=== PATIENT | female | born 1940 | race Caucasian/White ===

== ENCOUNTER 2019-04-13 16:43 | Inpatient (IN) ==
[2019-04-14] MEDS ORDERED: Mag Hydrox/Al Hydrox/Simeth 30 ML UDC PO PRN (20:21)
[2019-04-14] MEDS: *HR* HYDROcodone/Acet 5/325 mg TABLET PO PRN (21:53)
[2019-04-14] MEDS: Aspirin Enteric Coated 325 MG Tablet PO SCH (21:53)
[2019-04-15] MEDS: *HR* HYDROcodone/Acet 5/325 mg TABLET PO PRN ×4 (04:29→19:57)
[2019-04-15 04:47] LABS: Basophils % 0.5 %; Eosinophils # 0.1 K/mcL (0.0-0.6); Eosinophils % 1.7 %; Hematocrit 24.4 % (35.3-44.9); Hemoglobin 7.9 g/dL (11.5-15.4); Immature Granulocytes % 0.4 % (0-4); Lymphocytes # 1.6 K/mcL (0.6-4.6); Lymphocytes % 21.6 %; Mean Corpuscular HGB Conc 32.4 g/dL (31.6-35.5); Mean Corpuscular Hemoglobin 30.6 pg (28.0-33.3); Mean Corpuscular Volume 94.6 fL (83.0-100.0); Mean Platelet Volume 8.8 fL (9.4-12.4); Monocytes # 0.9 K/mcL (0.0-1.3); Monocytes % 12.1 %; Neutrophils # 4.8 K/mcL (1.6-8.9); Platelet Count 266 K/mcL (140-400); Red Blood Count 2.58 M/mcL (3.82-4.97); Red Cell Distribution Width 13.6 % (11.5-14.5); Segmented Neutrophils % 63.7 %; White Blood Count 7.6 K/mcL (4.3-11.1)
[2019-04-15 05:09] LABS: Alanine Aminotransferase 10 Units/L (7-52); Albumin 3.2 g/dL (3.5-5.7); Albumin/Globulin Ratio 1.2 (1.1-2.2); Alkaline Phosphatase 53 Units/L (34-104); Aspartate Amino Transferase 20 Units/L (13-39); BUN/Creatinine Ratio 20 (6-26); Bilirubin,Total 0.4 mg/dL (0.3-1.0); Blood Urea Nitrogen 19 mg/dL (8-23); Calcium 9.1 mg/dL (8.6-10.3); Carbon Dioxide 28 mEq/L (23-29); Chloride 97 mEq/L (98-107); Globulin 2.7 g/dL (2.4-3.5); Glucose 108 mg/dL (70-105); Magnesium 1.8 mg/dL (1.6-2.6); Osmolality,Calculated 273 (280-300); Sodium 130 mEq/L (136-145); Total Protein 5.9 g/dL (6.4-8.9); eGFR For African Americans > 60 (> 60); eGFR For Non-African Americans 57 (> 60)
[2019-04-15] MEDS: Cholecalciferol (D-3) 1,000 UNIT (25MCG) TABLET PO SCH (07:59)
[2019-04-15] MEDS: Acetaminophen 325 MG TABLET PO PRN (07:59)
[2019-04-15] MEDS: Aspirin Enteric Coated 325 MG Tablet PO SCH ×2 (08:00→19:57)
--- NOTE | 2019-04-15 11:17 | Internal Med History&Physical ---
Date of Encounter: 04/15/19 Time of Encounter: 11:14 Assessment and Plan (1) Status post total left knee replacement Current visit: Yes Status: Acute No acute issues. Patient was transferred to this facility for further rehabilitation due to weakness and unsteady gait secondary to her left total knee replacement. Patient has complained of moderate pain during mobilization. We will review patient's current pain medications for adjustment. Left knee surgical incision appears healthy. Therapy evaluation in progress and await recommendations. We will continue with current medications. (2) Chronic kidney disease, stage 3 Current visit: Yes Status: Chronic No acute issues. Patient's most recent creatinine was at 0.9. Patient has had issues with hyponatremia but her most recent labs show a sodium level I:XXX. We will continue to monitor renal status to serial labs. We will continue with current medications. (3) Anemia Current visit: Yes Status: Chronic No acute issues. Patient's last hemoglobin was 7.9 which is likely secondary to surgical blood loss. We will continue monitor the serial labs. Patient shows no signs of active bleeding and remains asymptomatic to her current hemoglobin. Qualifiers: Anemia type: unspecified type Qualified Code(s): D64.9 - Anemia, unspecified Internal Medicine - H&P: HPI Chief complaint: left total knee replacement Admitted From: Hospital to Hospital Transfer Plans for Post Hospital Care: Home History of present illness: Ms. Crews is a 78 year old female, who was transferred to this facility for further rehabilitation current having a left total knee replacement performed on 04/11/19. Patient had a mostly uneventful recovery while at area hospital, but continues to have an unsteady gait due to pain to her left knee. Patient states that she continues to have moderate pain to her left knee, which increases during mobilization. Patient denies any other discomforts or shortness of breath. Left knee with midline incision appears dry and intact with dressing. No edema or ecchymosis noted. Patient has continuous icing in place. Patient did not have evaluation for hyponatremia, but today's labs show a sodium of 130. Most recent hemoglobin was at 7.9. Past Med Surg Social Fam HX - Past Medical History Medical history: arthritis, glaucoma, hypertension, osteoporosis, other Additional medical history: SKIN CA. [place] palsy Psychiatric history: no psych history - Past Surgical History Surgical History: appendectomy, orthopedic, other, other Additional surgical history: TUBAL. Hemorrhoidectomy. Eye surgery. Skin surgery. bilateral carpal tunnel sx - Social History Smoking Status: Former smoker Smokeless Tobacco Status: No Alcohol use: none Drug use: none - Family History Mother Family Member Ethnicity: Non- Living Status: Age at : 83 Cause of : brain bleed Hx Family Cardiac Disorders: No Hx Family Respiratory Disorders: No Hx Family Cancer: No Hx Family GI Disorders: No Hx Family Genitourinary Disorders: No Hx Family Endocrine Disorder: No Hx Family Musculoskeletal Disorders: No Hx Family Neuromuscular Disorders: Yes (glaucoma) Internal Medicine - H&P: Meds Atorvastatin Calcium [Lipitor] 20 mg PO QAM 06/17/18 [History] Cholecalciferol (D-3) [Vitamin D] 1,000 unit PO DAILY 06/17/18 [History] Aspirin Enteric Coated [Aspirin EC] 325 mg PO BID 10 Days #20 tablet. 04/11/19 [Rx] Docusate Sodium [Colace] 100 mg PO BID 5 Days #10 capsule 04/11/19 [Rx] HYDROcodone/Acet 5/325 mg [[place] 5-325 mg] 1 tab PO Q6H PRN 5 Days #20 tab 04/11/19 [Rx] Acetaminophen [Non-Aspirin Extra Strength] 500 mg PO Q6H PRN 7 Days #28 tablet 04/14/19 [Rx] Lisinopril [Zestril] 10 mg PO DAILY tablet 04/14/19 [Rx] Allergy/AdvReac Type Severity Reaction Status Date / Time alendronate sodium Allergy See Verified 04/11/19 14:07 Comments codeine Allergy Itching Verified 04/11/19 14:07 oxycodone [From Percocet] Allergy Itching Verified 04/11/19 14:07 tramadol AdvReac Insomnia Verified 04/11/19 14:07 All Systems PM: A 10-system review of systems was performed and is negative for pertinent findi ngs except as documented above in the HPI. - Constitutional Constitutional: as per HPI - EENT Eyes: as per HPI, no change in vision, no discharge, no pain, no photophobia Ears: as per HPI, no ear discharge, no ear pain, no tinnitus Nose, mouth and throat: as per HPI, no dysphagia, no nasal discharge, no neck pain, no sore throat - Breasts Breasts: as per HPI - Cardiovascular Cardiovascular ROS IM: as per HPI, no chest pain, no diaphoresis, no dyspnea, no lightheadedness, no palpitations, no syncope - Respiratory Respiratory: as per HPI, no cough, no dyspnea, no wheezing, no excessive phlegm production - Gastrointestinal Gastrointestinal: as per HPI, no abdominal pain, no diarrhea, no hematemesis, no hematochezia, no melena, no nausea, no vomiting - Genitourinary Genitourinary: as per HPI, no change in urinary stream, no dysuria, no flank pain, no hematuria Menstruation: as per HPI - Musculoskeletal Musculoskeletal ROS IM: as per HPI, no numbness, no tingling - Integumentary Integumentary IM: as per HPI, no rash, no unusual bruising - Neurological Neurological ROS: as per HPI, no confusion, no convulsions, no focal weakness, no numbness, no tingling, no tremor(s) - Psychiatric Psychiatric: as per HPI - Hematologic/Lymphatic Hematologic/Lymphatic: no easy bruising - Constitutional Vitals: Temp Pulse Resp BP Pulse Ox 98.2 F 74 16 118/71 94 04/15/19 07:14 04/15/19 07:14 04/15/19 07:14 04/15/19 07:14 04/15/19 07:14 General appearance: Present: A&O X 3, pleasant - Head Head exam: Present: atraumatic, normocephalic - Eye Eye exam: Present: PERRL, conjuntiva pink, sclera anicteric Pupils: Present: PERRL - Neck Neck exam general surgery: Present: supple, trachea midline. Absent: lymphadenopathy - Respiratory Respiratory exam: Present: decreased breath sounds, CTAB. Absent: accessory muscle use, rales, rhonchi, wheezes - Cardiovascular Cardiovascular exam: Present: RRR, +S1, +S2. Absent: diastolic murmur, gallop, rubs, systolic murmur - GI/Abdominal GI/Abdominal exam: Present: normal bowel sounds, soft, no peritoneal signs. Absent: distended, tenderness - Extremities Exam Extremities exam: Present: warm, radial pulses palpable and symmetrical. Absent: calf tenderness, cyanotic, pedal edema Additional comments: Left knee with midline incision that appears healthy and intact with no ecchymosis or edema noted. Dressing remains dry and intact. - Neurological Exam Neurological exam: Present: CN II-XII intact, oriented X3, no focal deficits. Absent: pronater drift, facial droop, speech deficit - Skin Skin exam: Present: dry, intact Internal Med - H&P Results - Labs CBC & Chem 7: 04/15/19 04:39 04/15/19 04:39 Labs: Short CBC 04/15/19 Range/Units 04:39 WBC 7.6 (4.3-11.1) K/mcL Hgb 7.9 L (11.5-15.4) g/dL Hct 24.4 L (35.3-44.9) % Plt Count 266 (140-400) K/mcL Neutrophils # 4.8 (1.6-8.9) K/mcL BMP 04/15/19 04:39 Sodium 130 L Potassium 4.0 Chloride 97 L Carbon Dioxide 28 BUN 19 Creatinine 0.95 Glucose 108 H Calcium 9.1 Liver Function 04/15/19 Range/Units 04:39 Total Bilirubin 0.4 (0.3-1.0) mg/dL AST 20 (13-39) Units/L ALT 10 (7-52) Units/L Alkaline Phosphatase 53 (34-104) Units/L Albumin 3.2 L (3.5-5.7) g/dL
[2019-04-15] MEDS: Melatonin 3 MG TABLET PO PRN (19:57)
[2019-04-16] MEDS: *HR* Enoxaparin 40 MG/0.4 ML SYRINGE SQ SCH (05:17)
[2019-04-16] MEDS: *HR* HYDROcodone/Acet 5/325 mg TABLET PO PRN ×4 (05:42→19:08)
[2019-04-16] MEDS: Cholecalciferol (D-3) 1,000 UNIT (25MCG) TABLET PO SCH (09:02)
[2019-04-16] MEDS: Aspirin Enteric Coated 325 MG Tablet PO SCH ×2 (09:02→21:35)
[2019-04-16] MEDS ORDERED: Bisacodyl 10 MG RECTAL SUPPOSITORY RC PRN (18:01)
--- NOTE | 2019-04-16 18:03 | Internal Med Progress Note ---
Date of Encounter: 04/16/19 Time of Encounter: 15:40 - Subjective Interval history: Assessment and Plan (1) Status post total left knee replacement Current visit: Yes Status: Acute pt has had high pain levels. she does have listed some allergies for example to tramadol. She is having the norco 5 wear off so will increase it to norco 10 q 5 hr 1 tab prn. Will also add 2 days of po TORADOL for improved pain control after joint surgery. Pt is having some narcotic constipation will add mariaa suppos. will add fiber po. has hx of stable GERD will add carafate for GI protection. Patient was transferred to this facility for further rehabilitation due to weakness and unsteady gait secondary to her left total knee replacement. Patient has complained of moderate pain during mobilization. We will review patient's current pain medications for adjustment. Left knee surgical incision appears healthy. Having physical therapy, occupational and recreational therapies, and medical support as needed. Based on initial reports from physical therapy, she is progressing well. (2) Chronic kidney disease, stage 3 Current visit: Yes Status: Chronic No acute issues. Patient's most recent creatinine was at 0.9. GFR over 60. Patient has had issues with hyponatremia but her most recent labs show a sodium level 130 she is on renal diet We will continue to monitor renal status to serial labs. BMP We will continue with current medications. (3) Anemia Current visit: Yes Status: Chronic Patient's latest hemoglobin range in high 7 s which is likely secondary to surgical blood loss. She is macrocytic. No active bleed. She is still on proph lovenox 40. If continues to drop will need to stop the lovenox. Will check b12 levels and iron group. since macrocytic will add b12. since hb low will add low dose vit c and ferrous sulfate now will recheck cbc if serum iron low would benefit from IV ferrous sulf Qualifiers: Anemia type: unspecified type Qualified Code(s): D64.9 - Anemia, unspecified Interval HX Chief complaint: left total knee replacement Admitted From: Hospital to Hospital Transfer Plans for Post Hospital Care: Home Patient is a 70-year-old female status post left total knee replacement by , on 04/11/19. Her postoperative course has been complicated only by knee pain and constipation. She states it is been 5 days since her last bowel movement. We discussed this and she agrees to take MiraLAX, today. She denies any nausea except for right after surgery. She has had postoperative blood loss but this apparently is stable and well tolerated in terms of symptoms and vital signs. Since here, she has had inadequate control of her pain. Sometimes, this is gone as high as 10/10. We have changed her schedule to every 4 hours instead of every 6.Patient had a mostly uneventful recovery while at area hospital, but continues to have an unsteady gait due to pain to her left knee. Patient states that she continues to have moderate pain to her left knee, which increases during mobilization. Patient denies any other discomforts or shortness of breath. Left knee with midline incision appears dry and intact with dressing. No edema or ecchymosis noted. EXAM General: Pleasant WF In mild distress over knee pain alert and oriented 3. Head: Atraumatic and normocephalic. Eyes: Extraocular muscles are intact, pupils equal round and reactive to light and accommodation. Sclerae anicteric. Ears: External ears are normal to inspection and hearing is grossly normal. Nose: Patent without lesion noted. Mouth: Dentition is unremarkable. Neck: Supple with trachea midline. There is no thyromegaly or adenopathy and carotids are 2+ without bruit heard. Respiratory: . Lungs are clear throughout. Normal airflow. Cardiovascular: Regular rate and rhythm without murmur appreciated. Abdomen: Bowel sounds are normal. No hepatosplenomegaly masses or tenderness. Obese and therefore difficult to palpate deeply. Extremities: No cyanosis clubbing or edema. There is no cord or calf tenderness. The left knee is post surgical with no vis drainage from site pulses intact Neurological: A and O 3. Cranial nerves II through XII are intact. No focal deficits and no abnormal movements or postures. Skin: Warm and non-diaphoretic with no lesions noted. Breasts, pelvic and rectal: Not examined. - Constitutional Vitals: Temp Pulse Resp BP Pulse Ox 97.6 F 89 15 99/54 95 04/16/19 07:00 04/16/19 07:00 04/16/19 07:00 04/16/19 07:00 04/16/19 07:00 General appearance: Present: A&O X 3, pleasant Internal Medicine: Result - Labs CBC & Chem 7: 04/15/19 04:39 07/12/19 04:39 Consult Discharge Plan - Plan Referrals: Paz Blair DO [Primary Care Provider] -
[2019-04-16] MEDS: Acetaminophen 325 MG TABLET PO PRN (21:34)
[2019-04-16] MEDS: Melatonin 3 MG TABLET PO PRN (21:35)
[2019-04-17] MEDS: *HR* HYDROcodone/Acet 5/325 mg TABLET PO PRN ×3 (02:28→13:05)
[2019-04-17] MEDS: *HR* Enoxaparin 40 MG/0.4 ML SYRINGE SQ SCH (05:35)
[2019-04-17] MEDS: Cholecalciferol (D-3) 1,000 UNIT (25MCG) TABLET PO SCH (08:45)
[2019-04-17] MEDS: Aspirin Enteric Coated 325 MG Tablet PO SCH ×2 (08:45→21:07)
--- NOTE | 2019-04-17 17:32 | Internal Med Progress Note ---
Date of Encounter: 04/17/19 Time of Encounter: 16:40 - Subjective Interval history: Assessment and Plan (1) Status post total left knee replacement Current visit: Yes Status: Acute pt has had high pain levels. she does have listed some allergies for example to tramadol. She is having the norco 5 wear off so will increase it to norco 10 q 5 hr 1 tab prn. Will also add 2 days of po TORADOL for improved pain control after joint surgery. Pt is having some narcotic constipation will add mariaa suppos. will add fiber po. has hx of stable GERD will add carafate for GI protection. Patient was transferred to this facility for further rehabilitation due to weakness and unsteady gait secondary to her left total knee replacement. Patient has complained of moderate pain during mobilization. We will review patient's current pain medications for adjustment. Left knee surgical incision appears healthy. Having physical therapy, occupational and recreational therapies, and medical support as needed. Based on initial reports from physical therapy, she is progressing well. (2) Chronic kidney disease, stage 3 Current visit: Yes Status: Chronic No acute issues. Patient's most recent creatinine was at 0.9. GFR over 60. Patient has had issues with hyponatremia but her most recent labs show a sodium level 130 she is on renal diet We will continue to monitor renal status to serial labs. BMP We will continue with current medications. (3) Anemia Current visit: Yes Status: Chronic Patient's latest hemoglobin range in high 7 s which is likely secondary to surgical blood loss. She is macrocytic. No active bleed. She is still on proph lovenox 40. If continues to drop will need to stop the lovenox. Will check b12 levels and iron group. since macrocytic will add b12. since hb low will add low dose vit c and ferrous sulfate now will recheck cbc if serum iron low would benefit from IV ferrous sulfate as this would improve her rehab tolerance Qualifiers: Anemia type: unspecified type Qualified Code(s): D64.9 - Anemia, unspecified Interval HX Chief complaint: left total knee replacement Admitted From: Hospital to Hospital Transfer Plans for Post Hospital Care: Home Patient is a 70-year-old female status post left total knee replacement by , on 04/11/19. Her postoperative course has been complicated only by knee pain and constipation. She had today bowel movement. She has been using MiraLAX, Needed suppos as well. Eating better today. She has had postoperative blood loss but this apparently is stable and well tolerated in terms of symptoms and vital signs. She remains anemic. Since here, she has had inadequate control of her pain. Sometimes, this is gone as high as 10/10. We have changed her schedule to every 4 hours instead of every 6.Patient had a mostly uneventful recovery while at area hospital, but continues to have an unsteady gait due to pain to her left knee. Patient states that she continues to have moderate pain to her left knee, which increases durin g mobilization. Patient denies any other discomforts or shortness of breath. Left knee with midline incision appears dry and intact with dressing. No edema or ecchymosis noted. EXAM General: Pleasant WF In mild distress over knee pain alert and oriented 3. Head: Atraumatic and normocephalic. Eyes: Extraocular muscles are intact, pupils equal round and reactive to light and accommodation. Sclerae anicteric. Ears: External ears are normal to inspection and hearing is grossly normal. Nose: Patent without lesion noted. Mouth: Dentition is unremarkable. Neck: Supple with trachea midline. There is no thyromegaly or adenopathy and carotids are 2+ without bruit heard. Respiratory: . Lungs are clear throughout. Normal airflow. Cardiovascular: Regular rate and rhythm without murmur appreciated. Abdomen: Bowel sounds are normal. No hepatosplenomegaly masses or tenderness. Obese and therefore difficult to palpate deeply. Extremities: No cyanosis clubbing or edema. There is no cord or calf tenderness. The left knee is post surgical with no vis drainage from site pulses intact Neurological: A and O 3. Cranial nerves II through XII are intact. No focal deficits and no abnormal movements or postures. Skin: Warm and non-diaphoretic with no lesions noted. Breasts, pelvic and rectal: Not examined. - Constitutional Vitals: Temp Pulse Resp BP Pulse Ox 98.6 F 95 16 164/74 97 04/17/19 07:00 04/17/19 07:00 04/17/19 07:00 04/17/19 07:00 04/17/19 07:00 General appearance: Present: A&O X 3, pleasant Internal Medicine: Result - Labs CBC & Chem 7: 04/15/19 04:39 04/15/19 04:39 Consult Discharge Plan - Plan Referrals: Paz Blair DO [Primary Care Provider] -
[2019-04-17] MEDS: *HR* HYDROcodone/Acet 10/325 mg TABLET PO PRN ×2 (17:50→22:00)
[2019-04-17] MEDS: Cyanocobalamin (B-12) 1,000 MCG TABLET PO SCH (17:50)
[2019-04-17] MEDS: Ascorbic Acid 500 MG TABLET PO SCH (21:07)
[2019-04-18] MEDS: *HR* Enoxaparin 40 MG/0.4 ML SYRINGE SQ SCH (05:54)
[2019-04-18] MEDS: *HR* HYDROcodone/Acet 10/325 mg TABLET PO PRN ×3 (05:54→20:29)
[2019-04-18 06:09] LABS: Hematocrit 24.5 % (35.3-44.9); Hemoglobin 7.7 g/dL (11.5-15.4); Mean Corpuscular HGB Conc 31.4 g/dL (31.6-35.5); Mean Corpuscular Hemoglobin 30.7 pg (28.0-33.3); Mean Corpuscular Volume 97.6 fL (83.0-100.0); Mean Platelet Volume 8.4 fL (9.4-12.4); Platelet Count 319 K/mcL (140-400); Red Blood Count 2.51 M/mcL (3.82-4.97); White Blood Count 6.5 K/mcL (4.3-11.1)
[2019-04-18 06:20] LABS: BUN/Creatinine Ratio 18 (6-26); Blood Urea Nitrogen 19 mg/dL (8-23); Calcium 10.2 mg/dL (8.6-10.3); Carbon Dioxide 31 mEq/L (23-29); Chloride 98 mEq/L (98-107); Glucose 102 mg/dL (70-105); Osmolality,Calculated 274 (280-300); Potassium 5.1 mEq/L (3.5-5.1); Sodium 131 mEq/L (136-145); eGFR For African Americans > 60 (> 60); eGFR For Non-African Americans 50 (> 60)
[2019-04-18] MEDS: Sucralfate 1 GM TABLET PO SCH ×2 (08:08→17:32)
[2019-04-18] MEDS: Aspirin Enteric Coated 325 MG Tablet PO SCH ×2 (08:08→20:27)
[2019-04-18] MEDS: Cyanocobalamin (B-12) 1,000 MCG TABLET PO SCH (08:08)
[2019-04-18] MEDS: Ascorbic Acid 500 MG TABLET PO SCH ×2 (08:08→20:27)
[2019-04-18] MEDS: Cholecalciferol (D-3) 1,000 UNIT (25MCG) TABLET PO SCH (08:08)
[2019-04-18 14:01] LABS: % Iron Saturation 17 % (15-50); Iron 43 mcg/dL (50-170); Transferrin 180 mg/dL (203-362)
--- NOTE | 2019-04-18 15:04 | Internal Med Progress Note ---
Date of Encounter: 04/18/19 Time of Encounter: 15:00 - Assessment and plan (1) Status post total left knee replacement Current Visit: Yes Status: Acute Assessment and plan: Continue current pain medication. Follow up with ortho as scheduled. Continue PT and OT. Will follow progress. [place] Doppler to left lower extremity. Will follow for results. (2) Anemia Current Visit: Yes Status: Chronic Assessment and plan: Hemoglobin 7.7. Will repeat labs in a.m. Continue ferrous sulfate. Asymptomatic. Qualifiers: Anemia type: unspecified type Qualified Code(s): D64.9 - Anemia, unspecified - Time Spent With Patient less than 15 minutes - Subjective Interval history: Participating well with therapy. Complaining of pain medications not being effective for left lower extremity pain. [place] Doppler ordered. Will discuss Lidoderm patch. Denies fever, chills, nausea, vomiting or diarrhea. Denies shortness of breath or chest pain. - Constitutional Vitals: Temp Pulse Resp BP Pulse Ox 98.5 F 79 16 137/72 95 04/18/19 07:26 04/18/19 07:26 04/18/19 07:26 04/18/19 07:26 04/18/19 07:26 General appearance: Present: cooperative, A&O X 3, pleasant, no acute distress, answers questions appropriately - Head Head exam: Present: atraumatic, normocephalic - Eye Eye exam: Present: PERRL, conjuntiva pink, sclera anicteric Pupils: Present: PERRL - Neck Neck exam general surgery: Present: supple, trachea midline. Absent: lymphadenopathy - Respiratory Respiratory exam: Present: CTAB. Absent: accessory muscle use, rales, rhonchi, wheezes - Cardiovascular Cardiovascular exam: Present: RRR, +S1, +S2. Absent: diastolic murmur, gallop, rubs, systolic murmur - GI/Abdominal GI/Abdominal exam: Present: normal bowel sounds, soft, no peritoneal signs. Absent: distended, tenderness - Extremities Exam Extremities exam: Present: warm, radial pulses palpable and symmetrical. Absent: calf tenderness, cyanotic, pedal edema Additional comments: Left knee incision well approximated, no drainage. Dressing dry and intact. - Neurological Exam Neurological exam: Present: CN II-XII intact, oriented X3, no focal deficits. Absent: pronater drift, facial droop, speech deficit - Skin Skin exam: Present: dry, intact Internal Medicine: Result - Labs CBC & Chem 7: 04/18/19 05:55 04/18/19 05:55 Labs: Short CBC 04/18/19 Range/Units 05:55 WBC 6.5 (4.3-11.1) K/mcL Hgb 7.7 L (11.5-15.4) g/dL Hct 24.5 L (35.3-44.9) % Plt Count 319 (140-400) K/mcL BMP 04/18/19 05:55 Sodium 131 L Potassium 5.1 Chloride 98 Carbon Dioxide 31 H BUN 19 Creatinine 1.06 Glucose 102 Calcium 10.2 - Impressions Impressions Knee X-Ray 04/18/19 10:55 IMPRESSION: Postoperative changes with no complication. D/ / Van Aquino MD / Van Aquino MD Interpreting Provider: Van Aquino MD Consult Discharge Plan - Plan Referrals: Paz Blair DO [Primary Care Provider] -
[2019-04-19] MEDS: *HR* HYDROcodone/Acet 10/325 mg TABLET PO PRN ×4 (02:24→20:27)
[2019-04-19 05:47] LABS: Hematocrit 22.6 % (35.3-44.9); Hemoglobin 7.1 g/dL (11.5-15.4); Mean Corpuscular HGB Conc 31.4 g/dL (31.6-35.5); Mean Corpuscular Hemoglobin 30.6 pg (28.0-33.3); Mean Corpuscular Volume 97.4 fL (83.0-100.0); Mean Platelet Volume 8.4 fL (9.4-12.4); Platelet Count 319 K/mcL (140-400); Red Blood Count 2.32 M/mcL (3.82-4.97); Red Cell Distribution Width 14.2 % (11.5-14.5); White Blood Count 7.5 K/mcL (4.3-11.1)
[2019-04-19] MEDS: *HR* Enoxaparin 40 MG/0.4 ML SYRINGE SQ SCH (06:29)
[2019-04-19] MEDS: Sucralfate 1 GM TABLET PO SCH ×2 (06:31→16:37)
[2019-04-19] MEDS: Ondansetron ODT 4 MG TAB.RAPDIS SL PRN (09:19)
[2019-04-19] MEDS: Aspirin Enteric Coated 325 MG Tablet PO SCH ×3 (09:40→20:25)
[2019-04-19] MEDS: Cholecalciferol (D-3) 1,000 UNIT (25MCG) TABLET PO SCH ×2 (09:40→10:55)
[2019-04-19] MEDS: Cyanocobalamin (B-12) 1,000 MCG TABLET PO SCH ×2 (09:40→10:56)
[2019-04-19] MEDS: Ascorbic Acid 500 MG TABLET PO SCH ×3 (09:40→20:26)
--- NOTE | 2019-04-19 10:20 | Internal Med Progress Note ---
Date of Encounter: 04/19/19 Time of Encounter: 10:18 - Assessment and plan (1) Status post total left knee replacement Current Visit: Yes Status: Acute Assessment and plan: Continue current pain medication. Follow up with ortho as scheduled. Continue PT and OT. Will follow progress. [place] Doppler to left lower extremity. Will follow for results. (2) Anemia Current Visit: Yes Status: Chronic Assessment and plan: Hemoglobin 7.1. Will repeat labs in a.m. Continue ferrous sulfate. Asymptomatic. Qualifiers: Anemia type: unspecified type Qualified Code(s): D64.9 - Anemia, unspecified - Time Spent With Patient less than 15 minutes - Subjective Interval history: Participating well with therapy. Continues to complain of increased pain to left lower extremity. Encourage to use ice in pain medications prior to therapy session. Had in episode of emesis this morning, states she is feeling better n ow.. Denies fever, chills, nausea, vomiting or diarrhea. Denies shortness of breath or chest pain. - Constitutional Vitals: Temp Pulse Resp BP Pulse Ox 97.8 F 88 16 133/67 97 04/19/19 06:53 04/19/19 06:53 04/19/19 06:53 04/19/19 06:53 04/19/19 06:53 General appearance: Present: cooperative, A&O X 3, pleasant, no acute distress, answers questions appropriately - Head Head exam: Present: atraumatic, normocephalic - Eye Eye exam: Present: PERRL, conjuntiva pink, sclera anicteric Pupils: Present: PERRL - Neck Neck exam general surgery: Present: supple, trachea midline. Absent: lymphadenopathy - Respiratory Respiratory exam: Present: CTAB. Absent: accessory muscle use, rales, rhonchi, wheezes - Cardiovascular Cardiovascular exam: Present: RRR, +S1, +S2. Absent: diastolic murmur, gallop, rubs, systolic murmur - GI/Abdominal GI/Abdominal exam: Present: normal bowel sounds, soft, no peritoneal signs. Absent: distended, tenderness - Extremities Exam Extremities exam: Present: warm, radial pulses palpable and symmetrical. Absent: calf tenderness, cyanotic, pedal edema - [place] Comments: Left knee incision dressing dry and intact, no drainage, moderate amount of swelling surrounding incision. - Neurological Exam Neurological exam: Present: CN II-XII intact, oriented X3, no focal deficits. Absent: pronater drift, facial droop, speech deficit - Skin Skin exam: Present: dry, intact Internal Medicine: Result - Labs CBC & Chem 7: 04/19/19 05:25 04/18/19 05:55 Labs: Short CBC 04/19/19 Range/Units 05:25 WBC 7.5 (4.3-11.1) K/mcL Hgb 7.1 L (11.5-15.4) g/dL Hct 22.6 L (35.3-44.9) % Plt Count 319 (140-400) K/mcL - Impressions Impressions Knee X-Ray 04/18/19 10:55 IMPRESSION: Postoperative changes with no complication. D/ / Van Aquino MD / Van Aquino MD Interpreting Provider: Van Aquino MD Consult Discharge Plan - Plan Referrals: Paz Blair DO [Primary Care Provider] -
[2019-04-19] MEDS: Melatonin 3 MG TABLET PO PRN (22:58)
[2019-04-20] MEDS: *HR* HYDROcodone/Acet 10/325 mg TABLET PO PRN ×5 (00:33→20:57)
[2019-04-20] MEDS: *HR* Enoxaparin 40 MG/0.4 ML SYRINGE SQ SCH (04:37)
[2019-04-20] MEDS: Sucralfate 1 GM TABLET PO SCH ×2 (08:06→16:11)
[2019-04-20] MEDS: Cyanocobalamin (B-12) 1,000 MCG TABLET PO SCH (08:06)
[2019-04-20] MEDS: Aspirin Enteric Coated 325 MG Tablet PO SCH ×2 (08:06→20:57)
[2019-04-20] MEDS: Ascorbic Acid 500 MG TABLET PO SCH ×2 (08:06→20:57)
[2019-04-20] MEDS: Cholecalciferol (D-3) 1,000 UNIT (25MCG) TABLET PO SCH (08:06)
--- NOTE | 2019-04-20 10:28 | Internal Med Progress Note ---
Date of Encounter: 04/20/19 Time of Encounter: 10:25 - Assessment and plan (1) Status post total left knee replacement Current Visit: Yes Status: Acute Assessment and plan: No acute issues. Patient continues with complaints of severe pain but has been observed ambulating in room without difficulty. Patient is very stoic during description of severity of her pain. Left knee surgical incision appears healthy with no edema or ecchymosis noted. We will continue with current pain medications. Patient with orthopedic follow-up tomorrow and possible discharge in the morning. We will continue with current therapy. (2) Chronic kidney disease, stage 3 Current Visit: Yes Status: Chronic Assessment and plan: No acute issues. We will continue with current medications and evaluate patient's most recent labs (3) Anemia Current Visit: Yes Status: Chronic Assessment and plan: No acute issues at this time. Patient's most recent hemoglobin 7.1. Currently patient is asymptomatic and we will continue to monitor. Qualifiers: Anemia type: unspecified type Qualified Code(s): D64.9 - Anemia, unspecified - Time Spent With Patient less than 15 minutes - Subjective Interval history: Patient appears relaxed and was observed ambulating in the room with walker. Patient states that her pain to her left knee continues to be severe although patient is very stoic at the time of her description of her pain. Patient states that she has a follow-up appointment with Ortho tomorrow. Patient being prepared for possible discharge in the morning - Constitutional Vitals: Temp Pulse Resp BP Pulse Ox 97.9 F 84 16 115/65 95 04/20/19 07:17 04/20/19 07:17 04/20/19 07:17 04/20/19 07:17 04/20/19 07:17 General appearance: Present: cooperative, A&O X 3, pleasant, no acute distress, answers questions appropriately - Head Head exam: Present: atraumatic, normocephalic - Eye Eye exam: Present: PERRL, conjuntiva pink, sclera anicteric Pupils: Present: PERRL - Neck Neck exam general surgery: Present: supple, trachea midline. Absent: lymphadenopathy - Respiratory Respiratory exam: Present: CTAB. Absent: accessory muscle use, rales, rhonchi, wheezes - Cardiovascular Cardiovascular exam: Present: RRR, +S1, +S2. Absent: diastolic murmur, gallop, rubs, systolic murmur - GI/Abdominal GI/Abdominal exam: Present: normal bowel sounds, soft, no peritoneal signs. Absent: distended, tenderness - Extremities Exam Extremities exam: Present: warm, radial pulses palpable and symmetrical. Absent: calf tenderness, cyanotic, pedal edema Additional comments: Left knee surgical incision appears healthy and intact. Dressing remains dry and intact. No edema or ecchymosis noted - Neurological Exam Neurological exam: Present: CN II-XII intact, oriented X3, no focal deficits. Absent: pronater drift, facial droop, speech deficit - Skin Skin exam: Present: dry, intact Internal Medicine: Result - Labs CBC & Chem 7: 04/19/19 05:25 04/18/19 05:55 Consult Discharge Plan - Plan Referrals: Paz Blair DO [Primary Care Provider] -
--- NOTE | 2019-04-20 16:26 | Psychological Evaluation ---
Date of Encounter: 04/20/19 Time of Encounter: 10:00 History of Present Illness History of present illness: Ms. Crews is a 78 year old female who was transferred to this facility for further rehabilitation current having a left total knee replacement performed on 04/11/19. Patient had a mostly uneventful recovery while at [facility], but continues to have an unsteady gait due to pain to her left knee. Past Medical History - Psychiatric History Psychiatric history: Reports: no psych history Home Medications and Allergies Atorvastatin Calcium [Lipitor] 20 mg PO QAM 06/17/18 [History] Cholecalciferol (D-3) [Vitamin D] 1,000 unit PO DAILY 06/17/18 [History] Aspirin Enteric Coated [Aspirin EC] 325 mg PO BID 10 Days #20 tablet.dr 04/11/19 [Rx] Docusate Sodium [Colace] 100 mg PO BID 5 Days #10 capsule 04/11/19 [Rx] HYDROcodone/Acet 5/325 mg [[place] 5-325 mg] 1 tab PO Q6H PRN 5 Days #20 tab 04/11/19 [Rx] Acetaminophen [Non-Aspirin Extra Strength] 500 mg PO Q6H PRN 7 Days #28 tablet 04/14/19 [Rx] Lisinopril [Zestril] 10 mg PO DAILY tablet 04/14/19 [Rx] Allergy/AdvReac Type Severity Reaction Status Date / Time alendronate sodium Allergy See Verified 04/11/19 14:07 Comments codeine Allergy Itching Verified 04/11/19 14:07 oxycodone [From Percocet] Allergy Itching Verified 04/11/19 14:07 tramadol AdvReac Insomnia Verified 04/11/19 14:07 Social History - Social History Social History: Currently, involved in second marriage of 25 years. 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 High school diploma. - Tobacco Use Smoking Status: Never smoker - Alcohol Use Alcohol Use: none - Drug Use Drug Use: none Cognitive/Emotional Assessment - Cognitive Ability Abstract Thinking Ability: No Deficits Noted Attention Span Ability: Capable of Focused Attention, Capable of Sustained Attention Language Function Ability: No Deficits Noted Verbal Communication Ability: Conversational Style Problem Solving Ability: Able To Solve Simple Problems, Able To Solve Complex Problems Level of Alertness: Alert Memory Description: Recent Intact, Remote Intact Orientation: Person, Place, Time Visual Spatial Deficit: No Deficits Noted Ability to Follow Directions: Good Speech Pattern: Normal rate Thought Process: Intact - Emotional Status Mood Description: Anxious Affect Description: Flat Coping Ability: Unsure about ability to cope Additional Findings: Concerned with pain level and anxious to go home. Discussed need to stay on s chedule and complete home program. Processed her current limitations and upset with this loss of previous activity level. Discussed relaxation strategies if needed to manage pain. Assessment & Plan - Diagnosis (1) Adjustment disorder with anxious mood - Prognosis Prognosis: Good - Treatment Plan Treatment Plan/Recommendations: Discharged tomorrow Procedures - Participants Therapy Participant: Patient, Family - Session Time Session Start Time: 10:00 Session Stop Time: 10:30
[2019-04-20] MEDS: Ondansetron ODT 4 MG TAB.RAPDIS SL PRN (21:01)
[2019-04-21] MEDS: *HR* Enoxaparin 40 MG/0.4 ML SYRINGE SQ SCH (05:37)
[2019-04-21] MEDS: *HR* HYDROcodone/Acet 10/325 mg TABLET PO PRN (05:37)
[2019-04-21 07:56] VITALS: BP 120/76
[2019-04-21] MEDS: Aspirin Enteric Coated 325 MG Tablet PO SCH (08:16)
[2019-04-21] MEDS: Sucralfate 1 GM TABLET PO SCH (08:17)
[2019-04-21] MEDS: Ascorbic Acid 500 MG TABLET PO SCH (08:17)
[2019-04-21] MEDS: Cholecalciferol (D-3) 1,000 UNIT (25MCG) TABLET PO SCH (08:17)
[2019-04-21] MEDS: Cyanocobalamin (B-12) 1,000 MCG TABLET PO SCH (08:17)
--- NOTE | 2019-04-21 10:37 | Discharge Summary ---
Date of Encounter: 04/21/19 Time of Encounter: 10:35 - Discharge Diagnosis (1) Status post total left knee replacement Priority: Primary Status: Acute Comments: follow up with ortho as scheduled. continue outpt PT. current pain meds are effective (2) Anemia Priority: Secondary Status: Chronic Comments: follow up with PCP for lab repeat. continue ferrous sulfate. asymptomatic. Qualifiers: Anemia type: unspecified type Qualified Code(s): D64.9 - Anemia, unspecified Hospital course: Ms. Crews is a 78 year old female charging to home with status post left total knee replacement. Patient will continue outpatient physical therapy. Ambulates with Walker and pain is controlled with [place] 10 mg. Also using Lidoderm patch to left lower thigh. States this is effective. Instructed to follow up with surgeon as scheduled. During stay patient had a left knee x-ray and bilateral lower extremity venous Doppler due to increased pain. Both of these tests were negative. States she is ready to go home. Denies fever, chills, nausea vomiting or diarrhea. Denies shortness of breath or chest pain. Medications reviewed and prescriptions given. Discharge discussed with: patient, family, nurse, social work - Time Spent with Patient Total time spent providing and/or coordinating discharge services: Time spent: Less than 30 minutes - Discharge Medications Prescriptions: No Action Cholecalciferol (D-3) [Vitamin D] 1,000 unit PO DAILY Atorvastatin Calcium [Lipitor] 20 mg PO QAM Aspirin Enteric Coated [Aspirin EC] 325 mg PO BID 10 Days #20 tablet. Docusate Sodium [Colace] 100 mg PO BID 5 Days #10 capsule HYDROcodone/Acet 5/325 mg [[place] 5-325 mg] 1 tab PO Q6H PRN 5 Days #20 tab PRN Reason: Severe Pain Lisinopril [Zestril] 10 mg PO DAILY tablet Acetaminophen [Non-Aspirin Extra Strength] 500 mg PO Q6H PRN 7 Days #28 tablet PRN Reason: Mild To Moderate Pain Home Medications: Atorvastatin Calcium [Lipitor] 20 mg PO QAM 06/17/18 [History] Cholecalciferol (D-3) [Vitamin D] 1,000 unit PO DAILY 06/17/18 [History] Aspirin Enteric Coated [Aspirin EC] 325 mg PO BID 10 Days #20 tablet. 04/11/19 [Rx] Docusate Sodium [Colace] 100 mg PO BID 5 Days #10 capsule 04/11/19 [Rx] Acetaminophen [Non-Aspirin Extra Strength] 500 mg PO Q6H PRN 7 Days #28 tablet 04/14/19 [Rx] Lisinopril [Zestril] 10 mg PO DAILY tablet 04/14/19 [Rx] Ascorbic Acid [Vitamin C] 250 mg PO BID tablet 04/21/19 [Rx] Cyanocobalamin (B-12) [Vitamin B12] 2,000 mcg PO DAILY tablet 04/21/19 [Rx] Ferrous Sulfate 325 mg PO BIDWM #30 tablet 04/21/19 [Rx] HYDROcodone/Acet 10/325 mg [[place] 10-325 mg] 1 each PO Q6HR PRN 7 Days #28 tablet 04/21/19 [Rx] Lidocaine Patch [Lidoderm 5% patch] 1 each TP DAILY #7 adh..patch 04/21/19 [Rx] Melatonin 3 mg PO HS PRN tablet 04/21/19 [Rx] Allergies/Adverse Reactions: Allergy/AdvReac Type Severity Reaction Status Date / Time alendronate sodium Allergy See Verified 04/11/19 14:07 Comments codeine Allergy Itching Verified 04/11/19 14:07 oxycodone [From Percocet] Allergy Itching Verified 04/11/19 14:07 tramadol AdvReac Insomnia Verified 04/11/19 14:07 Date of admission: 04/14/19 17:53 Primary care physician: Arthur Macedo Consults: 04/14/19 20:23 Consult to Occupational Therapy [CONS] Routine Comment: Evaluate, develop and implement POC Reason for Consult: Eval and Treat Does patient have active BEDREST order?: No Is patient medically & hemodynamically stable?: Yes Patient assessed for mobility or mobilized this visit?: No Consult to Physical Therapy [CONS] Routine Comment: Evaluate, develop and implement POC Reason for Consult: Eval and Treat Does patient have active BEDREST order?: No Is patient medically & hemodynamically stable?: Yes Patient assessed for mobility or mobilized this visit?: No Consult to Recreational Therapy [CONS] Routine Comment: Evaluate, develop and implement POC Consult to Handbag Operator [CONS] Routine Reason for SW Consult: Discharge Planning 04/18/19 13:33 Consult to Psychology [CONS] Routine Consulting Provider: Ana Cosme Reason for Consult: Pain intolerance Call Completed: No Discharging clinician: Aldo Hassan Anticipated date of discharge: 04/21/19 - Constitutional Vitals: Temp Pulse Resp BP Pulse Ox 98.2 F 84 16 120/76 96 04/21/19 07:55 04/21/19 07:55 04/21/19 07:55 04/21/19 07:55 04/21/19 07:55 General appearance: Present: cooperative, A&O X 3, pleasant, no acute distress, answers questions appropriately - Head Head exam: Present: atraumatic, normocephalic - Eye Eye exam: Present: PERRL, conjuntiva pink, sclera anicteric Pupils: Present: PERRL - Neck Neck exam general surgery: Present: supple, trachea midline. Absent: lymphadenopathy - Respiratory Respiratory exam: Present: CTAB. Absent: accessory muscle use, rales, rhonchi, wheezes - Cardiovascular Cardiovascular exam: Present: RRR, +S1, +S2. Absent: diastolic murmur, gallop, rubs, systolic murmur - GI/Abdominal GI/Abdominal exam: Present: normal bowel sounds, soft, no peritoneal signs. Absent: distended, tenderness - Extremities Exam Extremities exam: Present: warm, radial pulses palpable and symmetrical. Absent: calf tenderness, cyanotic, pedal edema Additional comments: Left lower extremity non-pitting edema - [place] Comments: Dressing dry and intact to left knee. No drainage. No sign of infection. - Neurological Exam Neurological exam: Present: CN II-XII intact, oriented X3, no focal deficits. Absent: pronater drift, facial droop, speech deficit - Skin Skin exam: Present: dry, intact - Patient Status Disposition: Home, Self-Care Condition: Good Functional capacity at discharge: uses cane/walker Overall status at discharge: patient is progressing back to baseline - Discharge Instructions Follow Up With: Paz Blair, [Primary Care Provider] - - Diet and Activity Activity: as per physical therapy Diet: advance to your usual diet
== END 2019-04-21 12:00 | disposition home or self-care (01) | DRG 560 ==
LOC: INPGRE 04-14 17:53